=== PATIENT | female | born 1945 | race Caucasian/White ===

== ENCOUNTER 2017-05-24 09:30 | Day surgery (SDC) ==
[2017-05-24] MEDS ORDERED: LIDOCAINE 1% 20 ML MDV ID ONE (10:05)
[2017-05-24] MEDS ORDERED: VERSED ONE (11:57)
[2017-05-24] MEDS ORDERED: DIPRIVAN 20 ML VIAL IVP ONE (11:57)
[2017-05-24 13:36] VITALS: BP 132/83; TEMP 97.6
--- NOTE | 2017-05-25 13:07 | OP ---
INDICATIONS FOR PROCEDURE: 72-year-old female presents for colonoscopy exam. She has a history of adenomatous polyps with last colonoscopy three years ago. She also has a family history of colon cancer involving her father, paternal grandmother and paternal grandfather. Her father was in his 70s. MEDICATIONS: SEE ANESTHESIA NOTES. PROCEDURE: COLONOSCOPY, SNARE POLYPECTOMY. REPORT: The risks, benefits, alternatives and limitations were discussed in detail with the patient. Informed consent was obtained. After adequate sedation was achieved, digital rectal exam revealed good tone, no masses. The colonoscope was introduced into the rectum and advanced under direct visual guidance to the cecum. The cecum was identified by the appendiceal orifice and IC valve. In the cecum there were two polyps. One was right at the appendiceal orifice about 4 mm in size; the other was 4 to 5 mm in size and not too far away. I removed both of these polyps by snare technique. The smaller one was destroyed using the snare. I then slowly withdrew the scope in a circumferential manner examining the mucosa quite carefully. I looked on the proximal and distal side of folds and flexures as best as possible. I was able to retroflex the scope in the right colon and left colon to increase visualization. In the proximal mid transverse colon there were two ( 2) polyps ranging in size from 4mm to 6mm. These were removed by snare technique. The larger one was retrieved, the smaller one destroyed. In the sigmoid colon, midway, there was a sessile 7mm polyp that I removed by snare technique. There were several small mouth diverticula scattered throughout the sigmoid. No other abnormalities were noted including on retroflex view of the anal canal. The prep was good. The withdrawal time was 14 minutes and 40 seconds. The patient tolerated the procedure well with stable vital signs and pulse oximetry throughout. IMPRESSION: 1. FIVE (5) POLYPS REMOVED. 2. DIVERTICULOSIS. RECOMMENDATIONS: 1. High fiber diet 2. Office visit as needed 3. Await polyp pathology. If everything is benign as expected, I recommend repeat colonoscopy examination again in 3 years, sooner if there are any signs or symptoms to indicate otherwise. CC: DR. DAVID HAYNES
== END 2017-05-24 13:33 | disposition home or self-care (01) ==
LOC: SURG 09:30
PROVIDERS: ATTEND Internal Medicine Gastroenterology
DX: Z09 Encounter for follow-up examination after completed treatment for conditions other than malignant neoplasm (principal); Z86.010 Personal history of colon polyps; D12.0 Benign neoplasm of cecum; D12.3 Benign neoplasm of transverse colon; D12.5 Benign neoplasm of sigmoid colon; K63.5 Polyp of colon; K57.30 Diverticulosis of large intestine without perforation or abscess without bleeding; Z80.0 Family history of malignant neoplasm of digestive organs; E11.9 Type 2 diabetes mellitus without complications
CPT/HCPCS: 82962

== ENCOUNTER 2017-08-08 12:38 | Outpatient (CLI) ==
--- NOTE | 2017-08-08 14:58 | MAMMO ---
EXAM: Bilateral digital screening mammogram (2-D and 3-D) History: Screening Comparison: Bilateral mammogram 08/17/2016 Technique: MLO and CC views of bilateral breasts demonstrate predominately fatty replaced breast par enchyma. CAD was reviewed by the radiologist. Tomosynthesis was performed. There are no dominant m asses, no suspicious microcalcifications and no architectural distortions Impression: Stable negative mammogram. Recommend followup routine screening mammography in 1 year. BIRADS 1
== END 2017-08-08 12:39 | disposition home or self-care (01) ==
LOC: RAD 12:38
PROVIDERS: ATTEND Internal Medicine
DX: Z12.31 Encounter for screening mammogram for malignant neoplasm of breast (principal)
CPT/HCPCS: 77067

== ENCOUNTER 2018-01-29 17:24 | Emergency (ER) | payer OTHER ==
[2018-01-29 17:30] VITALS: BP 113/80; TEMP 96.8; BMI 29.2
[2018-01-29] MEDS ORDERED: ZOFRAN 4 MG/2 ML IVP STA (17:41)
--- NOTE | 2018-01-29 17:41 | ED.PDOC ---
General ED Provider: Dr. LEONEL GONZALES Chief Complaint: Nausea/Vomiting Stated Complaint: Patient Presents to [facility] ER with nausea and vomiting today with abdominal pain, asked how many times vomited stated several. Time Seen by Physician: 17:39 Mode of Arrival: Ambulance Information Source: Patient, EMT Primary Care Provider: SAULO MOSER Nursing and Triage Documentation Reviewed and Agree: Yes Reviewed sepsis parameters & appropriate labs ordered?: No System Inflammatory Response Syndrome: Not Applicable Sepsis Protocol: For patient's 13 years and over: Temp is 96.8 and below OR 101 and greater Pulse >90 BPM Resp >20/minute Acutely Altered Mental Status Are patient's symptoms suggestive of a new infection, such as: -Pneumonia -Skin, Soft Tissue -Endocarditis -UTI -Bone, Joint Infection -Implantable Device -Acute Abdominal Infection -Wound Infection -Meningitis -Blood Stream Catheter Infection -Unknown System Inflammatory Response Syndrome: Not Applicable GI Complaint Exam - Abdominal Pain Complaint/Exam Onset: Sudden Duration: 1 day Review of Systems - Review Of Systems Constitutional: Reports: No symptoms Eyes: Reports: No symptoms Ears, Nose, Mouth, Throat: Reports: No symptoms Respiratory: Reports: No symptoms Cardiac: Reports: No symptoms GI: Reports: Abdomen distended, Abdominal pain, Nausea, Poor appetite, Vomiting : Reports: No symptoms Musculoskeletal: Reports: No symptoms Skin: Reports: No symptoms Neurological: Reports: Anxiety Endocrine: Reports: No symptoms Hematologic/Lymphatic: Reports: No symptoms All Other Systems: Reviewed and Negative Past Medical History - Past Medical History Previously Healthy: Yes Endocrine: Reports: DM 2, Hypothyroid Cardiovascular: Reports: Hypertension Respiratory: Reports: None Hematological: Reports: None Gastrointestinal: Reports: GERD Genitourinary: Reports: None Neuro/Psych: Reports: None Musculoskeletal: Reports: Arthritis Cancer: Reports: None Last Menstrual Period: na - Surgical History General Surgical History: Reports: Cholecystectomy, Other (one ovry removed. ) - Family History Family History: Reports: Unknown - Social History Smoking Status: Former smoker Hx Substance Use: No Alcohol Screening: None Lives: With family - Immunizations Tetanus Shot up to Date: Yes Physical Exam - Physical Exam Appearance: Ill-appearing Ill-appearing: Severe Pain Distress: Severe Eyes: KEANU, EOMI, Conjunctiva clear ENT: Dry mucosa Neck: Supple Respiratory: Airway patent, Breath sounds clear, Breath sounds equal, Respirations nonlabored Cardiovascular: RRR, Pulses normal, No rub, No murmur GI/: Soft, Nontender, No masses, Bowel sounds normal, No Organomegaly Musculoskeletal: Normal strength, ROM intact, No edema, No calf tenderness Skin: Warm Neurological: Sensation intact, Motor intact, Alert, Oriented Psychiatric: Anxious Interpretation - Radiology Interpretation Radiology Interpretation By: Radiologist Radiology Results: Positive Exam Interpreted: CT Scan (Small bowel obstruction probably due to adhesion) Physician Notification - Case Discussed Physician Notified: Dr Cruz Time of Notification: 19:10 (Accepted for transfer. Please place NG tube 18 gauge ) Critical Care Note - Critical Care Note Total Time (mins): 45 Course - Course Hematology/Chemistry: 01/29/18 18:00 01/29/18 18:00 Orders, Labs, Meds: Lab Review 01/29/18 01/29/18 01/29/18 18:00 18:00 18:00 WBC 20.37 H RBC 6.11 H Hgb 16.5 H Hct 49.5 H MCV 81.0 MCH 27.0 MCHC 33.3 RDW Coeff of Ericka 13.4 Plt Count 327 Immature Gran % (Auto) 0.3 Neut % (Auto) 87.9 Lymph % (Auto) 3.7 L [place] % (Auto) 7.8 Eos % (Auto) 0.0 Baso % (Auto) 0.3 Immature Gran # (Auto) 0.1 Neut # (Auto) 17.9 H Lymph # (Auto) 0.8 [place] # (Auto) 1.6 Eos # (Auto) 0.0 Baso # (Auto) 0.1 Sodium 139 Potassium 4.2 Chloride 105 Carbon Dioxide 20 L Anion Gap 18.2 BUN 19 H Creatinine 1.11 Estimated GFR (MDRD) 48.00 BUN/Creatinine Ratio 17.11 Glucose 241 H Lactic Acid Calcium 10.2 Total Bilirubin 0.7 AST 38 H ALT 50 Alkaline Phosphatase 64 Total Protein 7.3 Albumin 4.0 Globulin 3.3 Albumin/Globulin Ratio 1.21 Amylase 57 Lipase 55 Procalcitonin 0.33 01/29/18 18:00 WBC RBC Hgb Hct MCV MCH MCHC RDW Coeff of Ericka Plt Count Immature Gran % (Auto) Neut % (Auto) Lymph % (Auto) [place] % (Auto) Eos % (Auto) Baso % (Auto) Immature Gran # (Auto) Neut # (Auto) Lymph # (Auto) [place] # (Auto) Eos # (Auto) Baso # (Auto) Sodium Potassium Chloride Carbon Dioxide Anion Gap BUN Creatinine Estimated GFR (MDRD) BUN/Creatinine Ratio Glucose Lactic Acid 23.5 H Calcium Total Bilirubin AST ALT Alkaline Phosphatase Total Protein Albumin Globulin Albumin/Globulin Ratio Amylase Lipase Procalcitonin Orders Category Date Time Status ED IV/MEDIPORT/POWERPORT .ONCE EMERGENCY 01/29/18 17:39 Active NG Tube [ED NASOGASTRIC TUBE INSERTION] .ONCE EMERGENCY 01/29/18 18:16 Active AMYLASE Stat LAB 01/29/18 18:00 Completed CBC W/ AUTO DIFF Stat LAB 01/29/18 18:00 Completed COMPREHENSIVE METABOLIC PANEL Stat LAB 01/29/18 18:00 Completed LACTIC ACID Stat LAB 01/29/18 18:00 Completed LIPASE Stat LAB 01/29/18 18:00 Completed PROCALCITONIN Stat LAB 01/29/18 18:00 Completed URINALYSIS C & S IF INDICATED Stat LAB 01/29/18 17:41 Uncollected 0.9 % Sodium Chloride [Saline Flush] MEDS 01/29/18 17:39 Ordered 1 syr IVF PRN PRN Morphine Sulfate [Morphine 2 mg/ml Syringe] MEDS 01/29/18 18:09 Discontinued 2 mg IVP ONCE STA Ondansetron HCl/Pf [Zofran 4 mg/2 ml] MEDS 01/29/18 17:41 Discontinued 4 mg IVP ONCE STA CT ABD/PEL WO RENAL STONE PROT Stat RADS 01/29/18 17:40 Completed Medications Generic Name Dose Route Start Last Admin Trade Name Freq PRN Reason Stop Dose Admin Sodium Chloride 1 syr 01/29/18 17:39 Saline Flush IVF PRN PRN To flush IV Discontinued Medications Generic Name Dose Route Start Last Admin Trade Name Freq PRN Reason Stop Dose Admin Morphine Sulfate 2 mg 01/29/18 18:09 01/29/18 18:15 Morphine 2 Mg/Ml Syringe IVP 01/29/18 18:10 2 mg ONCE STA Administration Ondansetron HCl 4 mg 01/29/18 17:41 01/29/18 18:14 Zofran 4 Mg/2 Ml IVP 01/29/18 17:42 4 mg ONCE STA Administration Vital Signs: Temp Pulse Resp BP Pulse Ox 01/29/18 17:25 96.8 F L 90 20 113/80 88 L Departure - Departure Time of Disposition: 19:11 Disposition: HOME SELF-CARE Discharge Problem: Small bowel obstruction due to adhesions Instructions: Bowel Obstruction (ED) Condition: Stable Pt referred to PMD for follow-up: No IPMP verified?: No Allergies/Adverse Reactions: Allergies aspirin [From Bufferin] Adverse Reaction (Verified 01/29/18 18:13) calcium carbonate [From Bufferin] Adverse Reaction (Verified 01/29/18 18:13) magnesium [From Bufferin] Adverse Reaction (Verified 01/29/18 18:13) Home Medications: Ambulatory Orders Allopurinol 1 tab PO DAILY 03/27/14 Amlodipine Besylate 1 tab PO DAILY 03/27/14 Omeprazole [Prilosec] 1 tab PO DAILY 03/27/14 Calcium Carb, Citrate/Vit D3 [Calcium + D3 ER Tablet] 1 tab PO DAILY 05/24/17 Estrogens, Conjugated [Premarin Vaginal Cream] 1 applic VAGINAL 2 TIMES PER WEEK 05/24/17 Fenofibrate 160 mg PO DAILY 05/24/17 Metformin HCl 500 mg PO DAILY 05/24/17 Pravastatin Sodium [Pravachol] 20 mg PO BEDTIME 05/24/17
[2018-01-29] MEDS ORDERED: MORPHINE 2 MG/ML SYRINGE IVP STA (18:09)
--- NOTE | 2018-01-29 18:19 | CT ---
EXAM: CT of the abdomen pelvis without contrast History: Abdominal pain and vomiting. Technique: Multiplanar CT images through the abdomen pelvis were obtained without the administration of IV contrast Findings: Subsegmental atelectasis seen within the lung bases. No acute osseous abnormalities. Status post cholecystectomy. The liver is enlarged and severely fatty. No peripancreatic inflammati on. Left adrenal gland is unremarkable. 1.3 cm right adrenal nodule. Spleen is unremarkable. No re nal stones and no hydronephrosis. Colonic diverticulosis. Fat-containing left inguinal hernia. Jamal dder is not well distended. Trace pelvic fluid. There are multiple fluid-filled loops of dilated sma ll bowel with transition point in the right lower abdomen probably due to a small bowel inflammatory stricture. Impression: 1. Small bowel obstruction probably due to adhesion or inflammatory stricture. 2. Small indeterminate right adrenal nodule. Recommend followup with CT or MRI adrenal mass protoco l. 3. Enlarged fatty liver. 4. Colonic diverticulosis. Critical results communicated to Dr. Tavarez at 6:15 p.m. 01/29/2018
[2018-01-29] MEDS ORDERED: LIDOCAINE JELLY 2% MUCOUSMEMB STA (19:40)
[2018-01-29] MEDS ORDERED: MORPHINE 4 MG/ML VIAL IVP STA (20:12)
[2018-01-29] MEDS ORDERED: SODIUM CHLORIDE 500 ML IV STA (20:13)
[2018-01-29] MEDS ORDERED: SODIUM CHLORIDE 1,000 ML IV STA (20:14)
[2018-01-29] MEDS ORDERED: MORPHINE 4 MG/ML SYRINGE ONE (20:19)
== END 2018-01-29 20:45 | disposition home or self-care (01) ==
LOC: ED 17:24
DX: K56.50 Intestinal adhesions [bands], unspecified as to partial versus complete obstruction (principal); E11.9 Type 2 diabetes mellitus without complications; E03.9 Hypothyroidism, unspecified; I10 Essential (primary) hypertension; K21.9 Gastro-esophageal reflux disease without esophagitis; R53.1 Weakness; R11.2 Nausea with vomiting, unspecified; R10.9 Unspecified abdominal pain
CPT/HCPCS: 36415; 74176; 80053; 82150; 83605; 83690; 84145; 85025; 96361; 96374; 96375; 96376; 99285

== ENCOUNTER 2018-08-15 15:14 | Outpatient (CLI) | payer OTHER ==
--- NOTE | 2018-08-16 10:42 | MAMMO ---
EXAM: Bilateral digital screening mammogram (2-D and 3-D) History: Screening Comparison: Bilateral mammogram 08/08/2017 Findings: MLO and CC views of bilateral breasts demonstrate predominately fatty replaced breast pare nchyma. There are no dominant masses, no suspicious microcalcifications and no architectural distort ions. CAD was reviewed by the radiologist. Tomosynthesis was performed. Impression: Stable negative mammogram. Recommend followup routine screening mammography in 1 year. BIRADS 1
== END 2018-08-15 15:15 | disposition home or self-care (01) ==
LOC: RAD 15:14
PROVIDERS: ATTEND Internal Medicine
DX: Z12.31 Encounter for screening mammogram for malignant neoplasm of breast (principal)
CPT/HCPCS: 77067

== ENCOUNTER 2018-12-04 06:43 | Outpatient (CLI) | payer OTHER ==
--- NOTE | 2018-12-04 12:49 | ECHO2D ---
Date of Exam: 12/04/18 Ordering Physician: DR. DUC HERNANDEZ Room #: OP Reason for Echo: SOB M-Mode Normal Adult Results LV Dimensions Normal Adult Results AoV Opening excursions >1.6 1.5 LVEDD-base- 3.5-5.8 5.0 Ao root dimensions 2.0-3.7 3.7 LVESD-base- 3.1-4.6 L. Atrium dimensions 1.9-3.8 4.2 Post. Wall thickness 0.8-1.1 0.9 IV septum (thickness) 0.7-1.2 1.0 Post. Wall excursion 0.72-1.3 0.6 Septal motion NORMAL Systolic motion R. Ventricular cavity 1.5-2.0 NORMAL LVEF 60% 35% Paradoxical septal wall motion NORMAL 2-D : HYPOKINETIC LEFT VENTRICLE, CALCIFIC MITRAL VALVE ANNULUS, NO EFFUSION, NO THROMBUS, NORMAL LEFT VENTRICLE SIZE, ENLARGED LEFT ATRIAL SIZE M-MODE: MV: CALCIFIC MITRAL VALVE ANNULUS AV: CALCIFIC AORTIC VALVES TV: NORMAL PV: CHAMBER SIZE: ENLARGED LEFT ATRIAL CAVITY WALL MOTION: HYPOKINETIC LEFT VENTRICLE PERICARDIUM: NORMAL INTERPRETATION: 1. HYPOKINETIC LEFT VENTRICLE WITH EJECTION FRACTION 35% 2. CALCIFIC MITRAL VALVE ANNULUS 3. CALCIFIC AORTIC VALVE --NO STENOSIS 4. MILDLY ENLARGED LEFT ATRIAL CAVITY MTDD
== END 2018-12-04 06:44 | disposition home or self-care (01) ==
LOC: CAR 06:43
PROVIDERS: ATTEND Internal Medicine
DX: R06.02 Shortness of breath (principal)
CPT/HCPCS: 93005; 93010

== ENCOUNTER 2018-12-06 06:44 | Outpatient (CLI) ==
--- NOTE | 2018-12-06 15:21 | NM ---
Exam: Myocardial perfusion study. Date: 12/06/2018. Comparison: 09/05/2015. HISTORY: Shortness of breath. TECHNIQUE: The patient was exercised using Isaiah protocol. The patient exercised for 2 minutes 33 s econds and achieved three mets. The blood pressure dot from 150/18 mmHg up to 160/80 mmHg. The exa m was terminated due to shortness of breath. The patient maximum tolerated treadmill stress, 24.8 mC i of technetium 99m sestamibi was injected and SPECT myocardial perfusion imaging begun within 60 min utes. For comparison, a resting study was performed following injection of 3.5 mCi of thallium 201. The stress gated acquisition was acquired as prior study to estimate an ejection fraction. FINDINGS: On the stress images in the apical anteroseptal wall, there is a small area decreased perfu christina with reperfusion on delayed imaging. The ejection fraction is estimated at 39%. Impression: On the stress images in the apical anteroseptal wall there is a small area of decreased perfusion with reperfusion on delayed imaging. This may represent a small focus of ischemia. The LV EF is estimated at 39%. If evaluation for wall motion is needed, then echocardiography may be of arsen ue.
--- NOTE | 2018-12-11 09:02 | STECHOSEST ---
Date of Test: 12/06/18 Ordering Physician: DR. DUC HERNANDEZ Occupation : RETIRED Reason for Exam: SOB, CARDIOMYOPATHY Smoking History: NONE Height: 65" Weight: 170 LBS Current Medications: PRAVASTATIN, FENOFIBRATE, AMLODIPINE BESYLATE, ALLOPURINOL , METFORMIN Resting EKG: SINUS RHYTHM/ SHORT UT/ LBBB Target Heart Rate: 124 S-T SEGMENT STAGE MPH/GRADE HEART RATE BPM BLOOD PRESSURE mmhg RHYTHM +/- ELEVATION DEPRESSION SYMPTOMS At Rest 73 BPM 150/80 MMHG SR X NONE 1 1.7/10% 130 BPM 160/80 MMHG SR X NONE 2 2.5/12% 3 3.4/14% 4 4.2/16% 5 5.0/18% Immediately after 130 BPM SR X SHORT OF AIR Minutes Post Exercise 4:00 82 BPM 140/80 MMHG SR X NONE Minutes Post Exercise Total Time: 2:33 Maximum Heart Rate Reached: 130 BPM Reason for Termination: SHORT OF AIR 98% Oxygen saturation on room air with exercises Mets 4.6 INTERPRETATION 1. NON DIAGNOSTIC PATIENT HAS LEFT BUNDLE BRANCH BLOCK 2. NO CHEST PAIN OR DISCOMFORT 3. NO ARRHYTHMIAS 4. BLOOD PRESSURE RESPONSE: NORMAL LEFT VENTRICULAR CONTRACTILITY--HYPOKINETIC LEFT VENTRICLE WITH IMPROVED LEFT VENTRICULAR CONTRACTILITY WITH EXERCISE SESTAMIBI TO FOLLOW MTDD
--- NOTE | 2018-12-11 09:04 | ECHOSTRESS ---
Date of Exam: 12/06/18 Ordering Physician: DR. DUC HERNANDEZ Reason for Echo: SOB, STRESS TEST--NON DIAGNOSTIC FOR ISCHEMIA M-Mode Normal Adult Results LV Dimensions Normal Adult Results AoV Opening excursions >1.6 LVEDD-base- 3.5-5.8 Ao root dimensions 2.0-3.7 LVESD-base- 3.1-4.6 L. Atrium dimensions 1.9-3.8 Post. Wall thickness 0.8-1.1 IV septum (thickness) 0.7-1.2 Post. Wall excursion 0.72-1.3 Septal motion Systolic motion R. Ventricular cavity 1.5-2.0 LVEF 60% Paradoxical septal wall motion 2-D: HYPOKINETIC LEFT VENTRICLE AT REST--IMPROVED LEFT VENTRICULAR CONTRACTILITY WITH EXERCISE M-MODE: MV: AV: TV: PV: CHAMBER SIZE: WALL MOTION: HYPOKINETIC LEFT VENTRICLE AT REST--IMPROVED LEFT VENTRICULAR CONTRACTILITY WITH EXERCISE PERICARDIUM: INTERPRETATION: 1. HYPOKINETIC LEFT VENTRICLE AT REST--IMPROVED LEFT VENTRICULAR CONTRACTILITY WITH EXERCISE MTDD
== END 2018-12-06 06:45 | disposition home or self-care (01) ==
LOC: CAR 06:44
PROVIDERS: ATTEND Internal Medicine
DX: R06.02 Shortness of breath (principal)

== ENCOUNTER 2019-01-17 12:56 | Outpatient (CLI) ==
--- NOTE | 2019-01-18 08:19 | DEXA ---
EXAM: Bone Densitometry DEXA HISTORY: Postmenopausal COMPARISON: None FINDINGS: DEXA scan of the lumbar spine was performed. Quality of the study is good. Bone mineral density is 1.032 grams per square centimeter. T-score is negative 1.2. Z-score is 0.1. DEXA scan right and left hip was performed. Quality of the study is good. Bone mineral density mean total is 0.909 grams per square centimeter. T-score is negative 0.8. Z-score is 0.6. Bone mineral density of the mean femoral neck is 0.843 with a T score of negative 1.4 and a Z score of 0.2. IMPRESSION: 1. Lumbar spine: Osteopenia. 2. Right and left hip: Normal bone marrow density 3. Right and left femoral neck: Osteopenia 4. 10 year risk for major osteoporotic fracture is 14.8% and for hip fracture is 3.3%. Reference Values according to World Health Organization criteria: T score greater than -1 is normal T score -1 to -2.5 is osteopenia T score less than -2.5 is osteoporosis.
== END 2019-01-17 12:57 | disposition home or self-care (01) ==
LOC: RAD 12:56
PROVIDERS: ATTEND Internal Medicine
DX: Z78.0 Asymptomatic menopausal state (principal)